=== PATIENT | female | born 1930 | race Caucasian/White ===

== ENCOUNTER 2016-11-07 17:43 | Inpatient (IN) | payer OTHER, MEDICARE ==
--- NOTE | 2016-11-07 18:14 | EDPHY ---
H & P Stated Complaint: VOMITING DIARRHEA FOR 2 DAYS, LOW BP Time Seen by Provider: 11/07/16 18:17 HPI/ROS: CHIEF COMPLAINT: Vomiting, diarrhea HISTORY OF PRESENT ILLNESS: This patient is an 86 year old female with a history of Alzheimer's disease who presents to the Emergency Department following two episodes of vomiting yesterday and diarrhea persisting over an unknown time. It seems that the vomiting and diarrhea occurred yesterday and today, but the details are unclear. Her granddaughter reports that patient was hypotensive at 61/30 when standing with the cuff they were using. She reported dizziness earlier that day as well. Upon arrival, BP is 131/61. The patient states that she is feeling much better and denies vomiting or diarrhea or abdominal pain. She denies chest pain, shortness of breath, or lightheadedness. Medical history incudes transient hypotension. She was evaluated in the emergency department previously with hypotension and has subsequently had her antihypertensive medications adjusted. The patient lives at home with 8 hours of help per day. She is followed by Dr. Harry, glass carrier and Dr. Padgett, PCP. REVIEW OF SYSTEMS: A ten point review of systems was performed and is negative with the exception of the items mentioned in the HPI. History provided by family members, as patient is considered unreliable due to her dementia. Source: Patient, Family Exam Limitations: Other (Dementia) - Personal History Current Tetanus/Diphtheria Vaccine: Unsure - Medical/Surgical History PMH: 1. Hypertension 2. Alzheimer's Disease 3. Transient hypotension with frequent falls Hx Asthma: No Hx Chronic Respiratory Disease: No Hx Diabetes: No Hx Cardiac Disease: No Hx Renal Disease: No Hx Cirrhosis: No Hx Alcoholism: No Hx HIV/AIDS: No Hx Splenectomy or Spleen Trauma: No - Social History Smoking Status: Never smoked Additional Social History: She is retired from [employer]. - Physical Exam Exam: General Appearance: Alert. Vital signs reviewed. Blood pressure 91/53 at triage, 131/60 at the time of my evaluation. Eyes: Pupils equal and round, no conjunctival injection, no discharge. Anicteric. ENT, Mouth: Mucous membranes are moist, no oropharyngeal erythema or edema. Neck: No lymphadenopathy, supple. Respiratory: Lungs are clear to auscultation; no wheezes, rales, or rhonchi. Cardiovascular: Regular rate and rhythm; no murmur, rub, or gallop. Gastrointestinal: Abdomen is soft with mild suprapubic tenderness to palpation , no guarding, no masses or organomegaly, bowel sounds normal. Skin: Warm and dry, no rashes on exposed skin, normal color. Back: Nontender to palpation over the thoracolumbar spine. No CVAT. Extremities: No lower extremity edema, no calf tenderness or swelling. Small skin tear on left reyes. Neurological: Alert and oriented. Moving all four extremities easily and equally. Psychiatric: Normal affect. Constitutional: Initial Vital Signs Temperature (C) 36.5 C 11/07/16 17:47 Heart Rate 56 L 11/07/16 17:47 Blood Pressure 91/53 L 11/07/16 17:47 O2 Sat (%) 98 11/07/16 17:47 O2 Delivery Mode Room Air Allergies/Adverse Reactions: No Known Allergies Allergy (Verified 11/07/16 17:53) Home Medications: Medication Instructions Recorded Donepezil HCl 10 mg PO HS 10/09/15 Aspirin [Aspirin 81mg (*)] 81 mg PO DAILY #30 tab 10/11/15 Metoprolol Succinate Xr [Toprol Xl 50 mg PO DAILY #30 tab 10/11/15 50 mg (*)] Escitalopram Oxalate [Lexapro] 10 mg PO DAILY 11/07/16 Herbals/Supplements -Info Only 1 ea PO DAILY 11/07/16 Lisinopril [Zestril 20 mg (*)] 20 mg PO DAILY 11/07/16 Medical Decision Making ED Course/Re-evaluation: IV established. 500ml IV NS administered. Will proceed with labs and UA. Labs reviewed and indicate acute kidney injury. I suspect that this is due to recent vomiting and diarrhea but the details of this presumed gastroenteritis are somewhat unclear. She has a baseline creatinine from 1.2-2.1, with today's values being markedly worse-labs show a BUN of 59 and a creatinine of 4.8 today. Potassium is normal. I discussed these results with the patient and her family as well as the plan for admission. 194: Consultation with Dr. Anu Robison, hospitalist, who accepts admission. Will check urine osmolality and sodium. She is being hydrated in the emergency department. Differential Diagnosis: I considered a differential diagnosis of elevated creatinine including but not limited to renal failure, pre renal, ATN, medication side effect, cardiorenal or hepato renal syndrome. - Data Points Laboratory Results: Laboratory Results 11/07/16 18:30 11/07/16 18:30 Medications Given: Discontinued Medications Sodium Chloride (Ns) 500 mls @ 0 mls/hr IV ONCE ONE PRN Reason: Wide Open Stop: 11/07/16 18:36 Last Admin: 11/07/16 18:40 Dose: 500 mls Sodium Chloride (Ns) 500 mls @ 1,500 mls/hr IV ONCE ONE Stop: 11/07/16 20:03 Last Admin: 11/07/16 19:45 Dose: 500 mls Departure - Departure Disposition: [facility] Inpatient Acute Clinical Impression: Dehydration Acute renal failure Qualifiers: Qualifier Code: (N17.9) Acute kidney failure, unspecified Condition: Fair Report Scribed for: Melinda Richmond Report Scribed by: Diana Childs Date of Report: 11/07/16 Time of Report: 18:16 Physician Review and Approval Statement: 11/07/16 18:14 Portions of this note were transcribed by the senior medical transcriptionist. I, Dr. Melinda Richmond, personally performed the history, physical exam, and medical decision- making; and confirmed the accuracy of the information in the transcribed note.
[2016-11-07] MEDS ORDERED: NS 500 ML IV ONE ×2 (18:35→19:44)
[2016-11-07 18:40] LABS: % IMMATURE GRANULYOCYTES 0.5 % (0.0-1.1); ABSOLUTE IMMATURE GRANULOCYTES 0.04 10^3/uL (0.00-0.10); ADD DIFF? NO; ADD MORPH? NO; ADD SCAN? NO; ATYPICAL LYMPHOCYTE FLAG 10 (0-99); FRAGMENT RBC FLAG 0 (0-99); HEMATOCRIT 39.6 % (38.0-47.0); HEMOGLOBIN 13.1 g/dL (12.6-16.3); LEFT SHIFT FLG 0 (0-99); LIPEMIA HEMOLYSIS FLAG 80 (0-99); MEAN CELL HEMOGLOBIN 32.3 pg (27.9-34.1); MEAN CELL HEMOGLOBIN CONCENTR. 33.1 g/dL (32.4-36.7); MEAN CELL VOLUME 97.5 fL (81.5-99.8); MEAN PLATELET VOLUME 9.7 fL (8.7-11.7); PLATELET CLUMPS FLAG 10 (0-99); PLATELET COUNT 320 10^3/uL (150-400); RED BLOOD CELL COUNT 4.06 10^6/uL (4.18-5.33); RED CELL DISTRIBUTION WIDTH 14.2 % (11.5-15.2)
[2016-11-07 19:02] LABS: ANION GAP 19 mEq/L (8-16); CALCIUM 8.9 mg/dL (8.5-10.4); CARBON DIOXIDE 16 mEq/l (22-31); CHLORIDE 106 mEq/L (97-110); CREATININE 4.8 mg/dL (0.6-1.0); GLOMERULAR FILTRATION RATE 9; GLUCOSE 103 mg/dL (70-100); POTASSIUM 3.8 mEq/L (3.5-5.2); SODIUM 141 mEq/L (134-144)
[2016-11-08] MEDS ORDERED: ACETAMINOPHEN 325 MG TAB PO PRN (00:09)
[2016-11-08] MEDS ORDERED: HYDROCODONE/APAP 5/325 TAB PO PRN (00:09)
[2016-11-08] MEDS ORDERED: ONDANSETRON DISINTEGRATING 4 MG TAB PO PRN (00:09)
[2016-11-08] MEDS ORDERED: ONDANSETRON 4 MG/2 ML VIAL IVP PRN (00:09)
[2016-11-08] MEDS: NS 1,000 ML IV SCH ×2 (00:39→13:52)
[2016-11-08] MEDS: HEPARIN 5,000 UNIT/0.5 ML SYR SC SCH ×3 (04:48→22:05)
--- NOTE | 2016-11-08 04:49 | PDGENHP ---
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 Per report patient had an episode of vomiting earlier in the day, granddaughter evaluated patient's blood pressure and was noted to be low, so she was brought to the ED for further evaluation. On my evaluation patient denies any complaints, denies any recent fevers, chills, nausea, vomiting, diarrhea, chest pain, dizziness or shortness of breath. Upon arrival to the ED patient was afebrile and hemodynamically stable. Patient 's labs revealed elevated BUN and creatinine, other electrolytes normal, normal CBC. Patient was given gentle IV fluid hydration and admitted to the hospital service for further management. History Information - Allergies/Home Medication List Allergies/Adverse Reactions: No Known Allergies Allergy (Verified 11/07/16 17:53) Home Medications: Donepezil HCl 10 mg PO HS 10/09/15 [Last Taken 11/07/16 10:00] Escitalopram Oxalate [Lexapro] 10 mg PO DAILY 11/07/16 [Last Taken 11/07/16 10: 00] Herbals/Supplements -Info Only 1 ea PO DAILY 11/07/16 [Last Taken Unknown] Lisinopril [Zestril 20 mg (*)] 20 mg PO DAILY 11/07/16 [Last Taken 11/07/16 10: 00] I have personally reviewed and updated: family history, medical history, social history, surgical history - Past Medical History Additional medical history: Alzheimer's dementia. Hypertension. History of CVA - Surgical History Additional surgical history: Hysterectomy - Family History Positive for: non-pertinent - Social History Smoking Status: Never smoked Alcohol Use: None Drug Use: None Additional social history: Patient lives alone with PAN GREASER, but is largely independent in all ADLs. She walks independently. Review of Systems ROS: 10pt was reviewed & negative except for what was stated in HPI & below Physical Exam Temp Pulse Resp BP Pulse Ox 36.5 C 59 L 16 139/55 H 99 11/08/16 04:38 11/08/16 04:38 11/08/16 04:38 11/08/16 04:38 11/08/16 04:38 Constitutional: no apparent distress, appears nourished, not in pain Eyes: PERRL, anicteric sclera, EOMI Ears, Nose, Mouth, Throat: hearing normal, ears appear normal, no oral mucosal ulcers, dry mucous membranes Cardiovascular: regular rate and rhythym, no murmur, rub, or gallop, pulses symmetric bilaterally, No JVD, No edema Peripheral Pulses: 2+: dorsalis-pedis (R), dorsalis-pedis (L) Respiratory: no respiratory distress, no rales or rhonchi, clear to auscultation Gastrointestinal: normoactive bowel sounds, soft, non-tender abdomen, no palpable masses Genitourinary: no bladder fullness, no bladder tenderness Skin: warm, normal color, no rashes or abrasions, no fluctuance, no induration, No mottled Musculoskeletal: full muscle strength, no muscle tenderness, normal joint ROM, no joint effusions Neurologic: sensation intact bilaterally, CN II-XII Intact, other (Conversant, oriented to person and hospital, follows all simple commands appropriately.), No weakness, No numbness, No pronator drift, No facial droop Psychiatric: interacting appropriately (With dementia), not encephalopathic Lab Data & Imaging Review 11/07/16 18:30 11/07/16 18:30 WBC 8.76 10^3/uL (3.80-9.50) 11/07/16 18:30 RBC 4.06 10^6/uL (4.18-5.33) L 11/07/16 18:30 Hgb 13.1 g/dL (12.6-16.3) 11/07/16 18:30 Hct 39.6 % (38.0-47.0) 11/07/16 18:30 MCV 97.5 fL (81.5-99.8) 11/07/16 18:30 MCH 32.3 pg (27.9-34.1) 11/07/16 18:30 MCHC 33.1 g/dL (32.4-36.7) 11/07/16 18:30 RDW 14.2 % (11.5-15.2) 11/07/16 18:30 Plt Count 320 10^3/uL (150-400) 11/07/16 18:30 MPV 9.7 fL (8.7-11.7) 11/07/16 18:30 Neut % (Auto) 51.1 % (39.3-74.2) 11/07/16 18:30 Lymph % (Auto) 36.6 % (15.0-45.0) 11/07/16 18:30 [place]alier % (Auto) 9.7 % (4.5-13.0) 11/07/16 18:30 Eos % (Auto) 1.4 % (0.6-7.6) 11/07/16 18:30 Baso % (Auto) 0.7 % (0.3-1.7) 11/07/16 18:30 Nucleat RBC Rel Count 0.0 % (0.0-0.2) 11/07/16 18:30 Absolute Neuts (auto) 4.48 10^3/uL (1.70-6.50) 11/07/16 18:30 Absolute Lymphs (auto) 3.21 10^3/uL (1.00-3.00) H 11/07/16 18:30 Absolute Monos (auto) 0.85 10^3/uL (0.30-0.80) H 11/07/16 18:30 Absolute Eos (auto) 0.12 10^3/uL (0.03-0.40) 11/07/16 18:30 Absolute Basos (auto) 0.06 10^3/uL (0.02-0.10) 11/07/16 18:30 Absolute Nucleated RBC 0.00 10^3/uL (0-0.01) 11/07/16 18:30 Immature Gran % 0.5 % (0.0-1.1) 11/07/16 18:30 Immature Gran # 0.04 10^3/uL (0.00-0.10) 11/07/16 18:30 Sodium 141 mEq/L (134-144) 11/07/16 18:30 Potassium 3.8 mEq/L (3.5-5.2) 11/07/16 18:30 Chloride 106 mEq/L (97-110) 11/07/16 18:30 Carbon Dioxide 16 mEq/l (22-31) L 11/07/16 18:30 Anion Gap 19 mEq/L (8-16) 01/16/17 18:30 BUN 59 mg/dL (7-23) H 11/07/16 18:30 Creatinine 4.8 mg/dL (0.6-1.0) H 11/07/16 18:30 Estimated GFR 9 11/07/16 18:30 Glucose 103 mg/dL (70-100) H 11/07/16 18:30 Calcium 8.9 mg/dL (8.5-10.4) 11/07/16 18:30 Assessment & Plan Assessment: Patient is an 86-year-old female with a history of Alzheimer's dementia, hypertension who presents to the ED after some episodes of vomiting, ED workup reveals ANAHI on CKD. Plan: # ANAHI on CKD BUN/Cr both elevated above previous baseline (Cr 1.2-2.1), likely prerenal given history of vomiting. Will check urinalysis, urine electrolytes and renal ultrasound. Hold all nephrotoxic agents. # nausea/vomiting Patient denies any nausea, vomiting or diarrhea on my evaluation. Likely a simple viral gastroenteritis. Will treat symptomatically and give IV fluid hydration. No indication for antibiotics at this time. # ?hypotension/lightheadedness Patient has been normotensive since arrival to the hospital. Report of hypotension at home is unclear. Will hold antihypertensives for now and give IV fluid hydration overnight. # Alzheimer's dementia Patient appears to be at baseline mental status. Will continue home med. # dispo: admit to inpt service for > 2 MN stay # gen: regular diet DVT ppx: lovenox Full code
[2016-11-08 05:35] LABS: % IMMATURE GRANULYOCYTES 0.3 % (0.0-1.1); ABSOLUTE IMMATURE GRANULOCYTES 0.03 10^3/uL (0.00-0.10); ADD DIFF? NO; ADD MORPH? NO; ADD SCAN? NO; ATYPICAL LYMPHOCYTE FLAG 10 (0-99); FRAGMENT RBC FLAG 0 (0-99); HEMATOCRIT 35.1 % (38.0-47.0); HEMOGLOBIN 11.4 g/dL (12.6-16.3); LEFT SHIFT FLG 0 (0-99); LIPEMIA HEMOLYSIS FLAG 80 (0-99); MEAN CELL HEMOGLOBIN 32.6 pg (27.9-34.1); MEAN CELL HEMOGLOBIN CONCENTR. 32.5 g/dL (32.4-36.7); MEAN CELL VOLUME 100.3 fL (81.5-99.8); MEAN PLATELET VOLUME 10.1 fL (8.7-11.7); PLATELET CLUMPS FLAG 0 (0-99); PLATELET COUNT 259 10^3/uL (150-400); RED CELL DISTRIBUTION WIDTH 14.3 % (11.5-15.2)
[2016-11-08 05:53] LABS: ANION GAP 14 mEq/L (8-16); CALCIUM 8.3 mg/dL (8.5-10.4); CARBON DIOXIDE 16 mEq/l (22-31); CHLORIDE 114 mEq/L (97-110); CREATININE 3.7 mg/dL (0.6-1.0); GLOMERULAR FILTRATION RATE 12; GLUCOSE 77 mg/dL (70-100); MAGNESIUM 2.1 mg/dL (1.6-2.3); POTASSIUM 3.9 mEq/L (3.5-5.2); SODIUM 144 mEq/L (134-144)
--- NOTE | 2016-11-08 10:25 | US ---
Ultrasound Abdomen Retroperitoneal. Indication Acute on chronic renal failure. TECHNIQUE: Grayscale and color imaging of the kidneys and bladder. FINDINGS: The right kidney measures 3.0 x 3.5 x 8.3 cm with a 1.1 cm cortex. Left kidney measures 4.6 x 4.8 x 8.7 cm with a 1.1 cm cortex. The kidneys are normal in morphology an d echotexture. Prevoid bladder volume is 40 mL. Patient was unable to void. Impression Mildly atrophic kidneys bilaterally.
[2016-11-08 11:13] LABS: COLOR YELLOW; LEUKOCYTE ESTERASE,URINE 1+ (NEGATIVE); NITRITE,URINE NEGATIVE (NEGATIVE)
[2016-11-08 11:18] LABS: BACTERIA TRACE /hpf (NONE SEEN); MUCUS TRACE /lpf (NONE-1+)
--- NOTE | 2016-11-08 13:45 | HOSPPROG ---
Hospitalist Progress Note Assessment/Plan: Patient is an 86-year-old female with a history of Alzheimer's dementia, hypertension who presents to the ED after some episodes of vomiting, ED workup reveals ANAHI on CKD. This is my first encounter. Chart reviewed. Plan: # ANAHI on CKD BUN/Cr both elevated above previous baseline (Cr 1.2-2.1), likely prerenal given history of vomiting. Urinalysis, urine electrolytes and renal ultrasound normal. Hold all nephrotoxic agents. Likely related to poor PO intake and vomiting. # nausea/vomiting Patient denies any nausea, vomiting or diarrhea on my evaluation. Likely a simple viral gastroenteritis. Will treat symptomatically and give IV fluid hydration. No indication for antibiotics at this time. # ?hypotension/lightheadedness Patient has been normotensive since arrival to the hospital. Report of hypotension at home is unclear. Will hold antihypertensives for now and give IV fluid hydration overnight. # Alzheimer's dementia Patient appears to be at baseline mental status. Will continue home med. # dispo: admit to inpt service for > 2 [place] stay possible DC in 1-2 days. Follow labs. # gen: regular diet DVT ppx: lovenox Full code Subjective: Up in the chair. Wants to go home. Feels better. Objective: Vital Signs Temp Pulse Resp BP Pulse Ox 36.6 C 54 L 16 158/70 H 95 11/08/16 07:22 11/08/16 07:22 11/08/16 04:38 11/08/16 07:22 11/08/16 07:22 Laboratory Results 11/08/16 04:44 11/08/16 04:44 11/07/16 11/08/16 11/09/16 05:59 05:59 05:59 Intake Total 1291 Output Total 300 100 Balance 991 -100 - Physical Exam Constitutional: no apparent distress, appears nourished, not in pain Eyes: PERRL, anicteric sclera, EOMI Ears, Nose, Mouth, Throat: moist mucous membranes, hearing normal, ears appear normal Cardiovascular: regular rate and rhythym, No JVD, No edema Respiratory: no respiratory distress, no rales or rhonchi, reduced air movement Gastrointestinal: No tenderness, No ascites, No guarding Skin: warm, normal color, No erythema Musculoskeletal: normal joint ROM, no joint effusions, generalized weakness Psychiatric: interacting appropriately, not anxious, poor insight, poor judgement, poor memory ICD10 Worksheet Patient Problems: Problems Problem Status Diagnosed Acute renal failure Acute Dehydration Acute Elevated troponin Acute Hypertension Acute
[2016-11-08] MEDS: ESCITALOPRAM OXALATE 10 MG TAB PO SCH (13:51)
[2016-11-08] MEDS: METOPROLOL SUCCINATE XR 50 MG TAB PO SCH (13:51)
[2016-11-08] MEDS ORDERED: NON-FORMULARY NEW DRUG (Donepezil Hcl [Donepezil Hcl] 10 MG) PO SCH (21:00)
[2016-11-08] MEDS ORDERED: DONEPEZIL HCL 5 MG TAB PO SCH (21:00)
[2016-11-08 23:23] VITALS: RESP 16
[2016-11-09] MEDS: NS 1,000 ML IV SCH (04:34)
[2016-11-09] MEDS: HEPARIN 5,000 UNIT/0.5 ML SYR SC SCH (04:57)
[2016-11-09 06:08] LABS: ANION GAP 12 mEq/L (8-16); CALCIUM 8.1 mg/dL (8.5-10.4); CARBON DIOXIDE 13 mEq/l (22-31); CHLORIDE 119 mEq/L (97-110); CREATININE 1.7 mg/dL (0.6-1.0); GLOMERULAR FILTRATION RATE 28; GLUCOSE 82 mg/dL (70-100); POTASSIUM 3.9 mEq/L (3.5-5.2); SODIUM 144 mEq/L (134-144)
[2016-11-09] MEDS: ESCITALOPRAM OXALATE 10 MG TAB PO SCH (08:36)
[2016-11-09] MEDS: METOPROLOL SUCCINATE XR 50 MG TAB PO SCH (08:36)
[2016-11-09 08:56] VITALS: BP 144/71; PULSE 50; TEMP 98.7; O2SAT 98
[2016-11-09] MEDS ORDERED: LISINOPRIL 20 MG TAB PO SCH (09:00)
[2016-11-09] MEDS ORDERED: Herbals/Supplements -Info Only PO SCH (09:00)
[2016-11-09] MEDS ORDERED: ASPIRIN 81 MG CHEWABLE TAB PO SCH (09:00)
--- NOTE | 2016-11-09 11:52 | GDS ---
[f rep st] DISCHARGE SUMMARY DISCHARGE DIAGNOSES: 1. Acute kidney injury. 2. Nausea and vomiting. 3. Hypotension. 4. Alzheimer disease. 5. Dehydration. PHYSICAL EXAM: GENERAL: The patient is alert. VITAL SIGNS: Afebrile at 37.1, pulse is 50, respira tory rate 16, blood pressure is 144/71. She is saturating 98% on room air. I have seen and evaluate d the patient on the day of discharge. HOSPITAL COURSE: The patient is an 86-year-old female who presented to the emergency room with compl aints of vomiting. 1. She was evaluated and diagnosed with acute kidney injury. During this hospitalization, she respo nded well to IV fluids. A renal ultrasound was performed that was benign. Her acute kidney injury h as resolved. She has returned to her baseline creatinine of 1.7 prior to disposition. This is likel y prerenal azotemia. 2. Nausea and vomiting. This has resolved and likely viral gastroenteritis. 3. Hypotension. The patient has been normotensive during this hospitalization with no complications . 4. Alzheimer's dementia. She is at her baseline. DISPOSITION: The patient will be discharged home with her family independently. There are no pendin g studies. Followup will be with her primary care physician, Moon Padgett, in the next week, for fu rther evaluation of her renal function. DISCHARGE MEDICATIONS: Please refer to EMR form. I have not adjusted the patient's previously presc ribed home medications to the best of my knowledge. I spent greater than 35 minutes in the care, coordination, and management of this patient's dispositi on, including family interaction, case management interaction and [id number] interaction. /[id number]/MODL
== END 2016-11-09 10:29 | disposition home or self-care (01) | DRG 684 ==
LOC: EEVIPCON 17:43 → F3E 20:48
PROVIDERS: ADMIT Hospitalist; ATTEND Hospitalist
DX: N17.9 Acute kidney failure, unspecified (principal); A08.4 Viral intestinal infection, unspecified; F02.80 Dementia in other diseases classified elsewhere, unspecified severity, without behavioral disturbance, psychotic disturbance, mood disturbance, and anxiety; G30.9 Alzheimer's disease, unspecified; I10 Essential (primary) hypertension; Z86.73 Personal history of transient ischemic attack (TIA), and cerebral infarction without residual deficits
CPT/HCPCS: 97162-GP; 97165-GO; G8978-GP-CI; G8979-GP-CI; G8987-GO-CI; G8988-GO-CI; G8989-GO-CI

== ENCOUNTER 2016-12-29 16:17 | Observation (INO) | payer OTHER, MEDICARE ==
--- NOTE | 2016-12-29 17:04 | EDPHY ---
H & P Time Seen by Provider: 12/29/16 17:03 HPI/ROS: CHIEF COMPLAINT: Near syncope and low blood pressure HISTORY OF PRESENT ILLNESS: This 86-year-old woman arrives with her daughter. They have been having trouble getting her blood pressure in an adequate range and continued to try different medications. She just recently started hydrochlorothiazide. Today at 2:30 p.m. the caregiver went to her house and found her leaning against the wall shaky when the door was finally opened. She was lightheaded and almost passed out and was down on the couch. Her granddaughter came over and her blood pressure and was 84/60 lying down and 61/ 50 standing up. Patient had leg cramps them but does not have any now. REVIEW OF SYSTEMS: Eye: no change in vision ENT: no sore throat Cardiac: no chest pain or syncope Pulmonary: no cough or SOB Abdomen: no vomiting, diarrhea, abdominal pain Musculoskeletal: no back pain Skin: no rash Neuro: no headache Constitutional: no fever : no urinary symptoms A comprehensive 10 point review of systems is otherwise negative aside from elements mentioned in the history of present illness. PAST MEDICAL HISTORY: Includes stroke and Alzheimer's, hypertension. Social history: Here with her daughter who was at nurse. Primary care is Moon Padgett. General Appearance: Alert and conversant, cooperative. Eyes: No scleral icterus. ENT, Mouth: Normal mucous membranes. Respiratory: Normal respiratory effort, breath sounds equal, lungs are clear to auscultation. Cardiovascular: Regular rate and rhythm. Gastrointestinal: Abdomen is soft and non tender. Neurological: Alert and follows commands but poor short-term memory. Normally conversant. Face symmetric, normal movement and sensation in all extremities. Skin: Warm and dry, no rashes. Musculoskeletal: No peripheral edema and no joint swelling. Psychiatric: Not agitated. Emergency Department course/MDM: Normal saline 500 mL IV, labs to check electrolytes and EKG. Griselda at 1802. Admit for orthostatic hypotension and significant dehydration with evidence of acute renal failure and creatinine 2.4 which is markedly above baseline. Smoking Status: Never smoked Constitutional: Initial Vital Signs Temperature (C) 36.4 C 12/29/16 16:28 Heart Rate 63 12/29/16 16:28 Respiratory Rate 16 12/29/16 16:28 Blood Pressure 108/55 L 12/29/16 16:28 O2 Sat (%) 97 12/29/16 16:28 O2 Delivery Mode Room Air Allergies/Adverse Reactions: No Known Allergies Allergy (Verified 11/07/16 17:53) Home Medications: Medication Instructions Recorded Donepezil HCl 10 mg PO HS 10/09/15 Aspirin [Aspirin 81mg (*)] 81 mg PO DAILY #30 tab 10/11/15 Metoprolol Succinate Xr [Toprol Xl 50 mg PO DAILY #30 tab 10/11/15 50 mg (*)] Escitalopram Oxalate [Lexapro 10 10 mg PO DAILY 11/07/16 MG] Lisinopril [Zestril 20 mg (*)] 20 mg PO DAILY 11/07/16 Acetaminophen [Tylenol 325mg (*)] 650 mg PO Q4HRS PRN #0 tab 11/09/16 Medical Decision Making - Diagnostics EKG Interpretation: 12-lead EKG interpreted by me; official reading is in trace master. My interpretation is sinus rhythm rate 60 with PAC and 1st degree AV block. Incomplete left bundle branch block with LVH. - Data Points Laboratory Results: Laboratory Results 12/29/16 17:13 12/29/16 17:13 12/29/16 12/29/16 17:13 17:13 WBC 8.48 10^3/uL 10^3/uL (3.80-9.50) RBC 4.17 10^6/uL L 10^6/uL (4.18-5.33) Hgb 13.3 g/dL g/dL (12.6-16.3) Hct 41.2 % % (38.0-47.0) MCV 98.8 fL fL (81.5-99.8) MCH 31.9 pg pg (27.9-34.1) MCHC 32.3 g/dL L g/dL (32.4-36.7) RDW 13.5 % % (11.5-15.2) Plt Count 278 10^3/uL 10^3/uL (150-400) MPV 10.5 fL fL (8.7-11.7) Neut % (Auto) 59.2 % % (39.3-74.2) Lymph % (Auto) 30.1 % % (15.0-45.0) [place] % (Auto) 8.5 % % (4.5-13.0) Eos % (Auto) 1.1 % % (0.6-7.6) Baso % (Auto) 0.7 % % (0.3-1.7) Nucleat RBC Rel Count 0.0 % % (0.0-0.2) Absolute Neuts (auto) 5.03 10^3/uL 10^3/uL (1.70-6.50) Absolute Lymphs (auto) 2.55 10^3/uL 10^3/uL (1.00-3.00) Absolute Monos (auto) 0.72 10^3/uL 10^3/uL (0.30-0.80) Absolute Eos (auto) 0.09 10^3/uL 10^3/uL (0.03-0.40) Absolute Basos (auto) 0.06 10^3/uL 10^3/uL (0.02-0.10) Absolute Nucleated RBC 0.00 10^3/uL 10^3/uL (0-0.01) Immature Gran % 0.4 % % (0.0-1.1) Immature Gran # 0.03 10^3/uL 10^3/uL (0.00-0.10) Sodium 134 mEq/L mEq/L (134-144) Potassium 5.0 mEq/L mEq/L (3.5-5.2) Chloride 100 mEq/L mEq/L (97-110) Carbon Dioxide 20 mEq/l L mEq/l (22-31) Anion Gap 14 mEq/L mEq/L (8-16) BUN 58 mg/dL H mg/dL (7-23) Creatinine 2.4 mg/dL H mg/dL (0.6-1.0) Estimated GFR 19 Glucose 88 mg/dL mg/dL (70-100) Calcium 9.5 mg/dL mg/dL (8.5-10.4) Troponin I 0.027 ng/mL ng/mL (0-0.034) NT-Pro-B Natriuret Pep 512 pg/mL H pg/mL (0-450) Medications Given: Discontinued Medications Sodium Chloride (Ns) 500 mls @ 0 mls/hr IV ONCE ONE PRN Reason: As Directed Stop: 12/29/16 17:18 Last Admin: 12/29/16 17:50 Dose: 500 mls Departure - Departure Disposition: [facility] Inpatient Acute Clinical Impression: Orthostatic hypotension Acute renal failure Qualifiers: Acute renal failure type: unspecified Qualified Code(s): N17.9 - Acute kidney failure, unspecified Referrals: Moon Padgett MD [Primary Care Provider] - As per Instructions
[2016-12-29] MEDS ORDERED: NS 500 ML IV ONE (17:17)
--- NOTE | 2016-12-29 17:23 | CPEKG ---
Heart Rate: 60 RR Interval: 1000 P-R Interval: 232 QRSD Interval: 114 QT Interval: 452 QTC Interval: 452 P [place]: 33 QRS [place]: -37 T Wave [place]: 140 EKG Severity - ABNORMAL ECG - EKG Impression: SINUS RHYTHM EKG Impression: ATRIAL PREMATURE COMPLEX EKG Impression: FIRST DEGREE AV BLOCK EKG Impression: INCOMPLETE LEFT BUNDLE BRANCH BLOCK EKG Impression: LVH WITH SECONDARY REPOLARIZATION ABNORMALITY Electronically Signed By: Rene Kwon 29-Dec-2016 17:25:30
[2016-12-29 17:25] LABS: % IMMATURE GRANULYOCYTES 0.4 % (0.0-1.1); ABSOLUTE IMMATURE GRANULOCYTES 0.03 10^3/uL (0.00-0.10); ADD DIFF? NO; ADD MORPH? NO; ADD SCAN? NO; ATYPICAL LYMPHOCYTE FLAG 30 (0-99); FRAGMENT RBC FLAG 0 (0-99); HEMATOCRIT 41.2 % (38.0-47.0); HEMOGLOBIN 13.3 g/dL (12.6-16.3); LEFT SHIFT FLG 0 (0-99); LIPEMIA HEMOLYSIS FLAG 80 (0-99); MEAN CELL HEMOGLOBIN 31.9 pg (27.9-34.1); MEAN CELL HEMOGLOBIN CONCENTR. 32.3 g/dL (32.4-36.7); MEAN CELL VOLUME 98.8 fL (81.5-99.8); MEAN PLATELET VOLUME 10.5 fL (8.7-11.7); PLATELET CLUMPS FLAG 10 (0-99); PLATELET COUNT 278 10^3/uL (150-400); RED BLOOD CELL COUNT 4.17 10^6/uL (4.18-5.33); RED CELL DISTRIBUTION WIDTH 13.5 % (11.5-15.2)
[2016-12-29 17:36] LABS: ANION GAP 14 mEq/L (8-16); CALCIUM 9.5 mg/dL (8.5-10.4); CARBON DIOXIDE 20 mEq/l (22-31); CHLORIDE 100 mEq/L (97-110); CREATININE 2.4 mg/dL (0.6-1.0); GLOMERULAR FILTRATION RATE 19; GLUCOSE 88 mg/dL (70-100); SODIUM 134 mEq/L (134-144)
[2016-12-29 17:48] LABS: TROPONIN I 0.027 ng/mL (0-0.034)
[2016-12-29] MEDS ORDERED: ONDANSETRON DISINTEGRATING 4 MG TAB PO PRN (19:16)
[2016-12-29] MEDS ORDERED: ACETAMINOPHEN 325 MG TAB PO PRN (19:16)
[2016-12-29] MEDS ORDERED: ONDANSETRON 4 MG/2 ML VIAL IVP PRN (19:16)
[2016-12-29] MEDS ORDERED: hydrALAZINE 20 MG/ML VIAL IVP PRN (19:23)
--- NOTE | 2016-12-29 19:44 | GHP ---
[f rep st] HISTORY AND PHYSICAL DATE OF ADMISSION: 12/29/2016 CHIEF COMPLAINT: Near syncope and low blood pressure. HISTORY OF PRESENT ILLNESS: This is an 86-year-old female, who arrives in the emergency department with her daughter. Recent history indicates she has been having trouble controlling her blood press ure for the past 4 to 6 weeks. In October 2016 the patient was cared for in this facility for an ac gabby episode of nausea, vomiting, hypotension and dehydration. She exhibited some acute renal injury at that time. She was noted to be hypotensive during the hospitalization and then normotensive at discharge, and was discharged without her usual antihypertensives. Following that discharge, on , her blood pressure remained normal for approximately 2 weeks. Then it began to rise and be came quite high. Previous to that admission her blood pressure had easily been controlled on metopr olol 50 mg a day, along with lisinopril 10 mg a day. Now following the hospitalization her blood pr essure began to rise and became quite high with systolics in the 200s and a complaint of a headache. She was then restarted on her metoprolol along with her lisinopril. During physician's visit she was noted to have developed peripheral edema, to have some facial edema, and to have a pulse rate in the 30s. The metoprolol was stopped at that time. The lisinopril was increased to 20 mg a day wit hout much control of her blood pressure. In addition, the peripheral edema did not resolve very wel l, thus approximately 1-1/2 to 2 weeks ago her lisinopril remained at 20 mg a day, and she was place d on hydrochlorothiazide 12.5 mg a day. The peripheral edema began to resolve, yet today she was no milind by her caregiver to be weak and tired, and have a blood pressure in the 60s to 80s systolic. Trish nuñez was thus transported to this facility, and is seen now where her initial blood pressure was 108/55 , and her mental status was normal. She has a known long history of hypertension and approximately a 10 year history of Alzheimer's, bot h of which have been treated and in good control up until October of 2016. PAST MEDICAL HISTORY: 1. Alzheimer's for the last 10 years. 2. Acute kidney injury, which has been noted since 12/12/2015. Prior to that she normal renal func tion, but since 2016 she has had an elevated creatinine and BUN. 3. History of a cerebrovascular accident noted in the EMR, without further documentation. 4. Bradycardiac in the presence of metoprolol 50 mg a day, in November 2016. ALLERGIES: None. CURRENT MEDICATIONS: Metoprolol succinate 50 mg a day, lisinopril 20 mg a day, Lexapro 10 mg, benaz epril 10 mg, ASA 81 mg, and Tylenol 325 mg. Note that she is not taking the metoprolol 50 mg a day, and hydrochlorothiazide was just recently stopped at 12.5 mg a day. REVIEW OF SYSTEMS: Except as noted above, a 10-point review of systems is negative. Specifically, the patient has not had a fall, she did not strike her head, nor has she suffered a seizure or any f orm of head trauma. In addition she has no complaints of chest pain, orthopnea, PND, abdominal pain , nausea or vomiting. Her bowel function has returned to normal. FAMILY HISTORY: Noncontributory. There is no significant history of coronary disease or cancer. PHYSICAL EXAMINATION: GENERAL: This is a pleasant, alert female. VITAL SIGNS: Vital signs are en tirely normal, and she is afebrile. HEENT: Atraumatic. Throat is benign, although her mucous memb ranes are slightly dry. Tongue and buccal mucosa appear normal, without lesions. CHEST WALL: Nont mary to palpation, normal inspiratory excursion. LUNGS: Clear to P and A. HEART: Singular S1 an d S2, no murmurs, gallops, or rubs. ABDOMEN: Thin, normoactive bowel sounds. No masses, tendernes s or organomegaly. EXTREMITIES: No edema, cyanosis or clubbing. NEUROLOGIC: An oriented x1 femal e. She is alert, responsive and appropriate. Cranial nerves 2-12 are intact grossly, motor sensory function grossly intact. LABORATORY: Her chemistry panel shows acute on chronic renal failure with a BUN of 50, a creatinine of 2.4. Her last normal creatinine was in November 2015 with a creatinine of 0.9. Since that time her creatinine has ranged from 1.2 to now as high as 2.4, although the last creatinine done on 12/2016 was 1.7. CBC is normal. ASSESSMENT: 1. Acute hypotension secondary to dehydration, due to the use of hydrochlorothiazide as a diuretic for control of blood pressure. Historically she started HCTZ approximately 10 to 14 days ago and no w has resolved her peripheral edema, but has clearly been excessively diuresed. Her creatinine is e levated, indicative of this. 2. Hypertension, at a baseline which has been difficult to control for the last 4 to 6 weeks since her hospitalization of 11/11/2016. 3. Episode of bradycardia documented in Dr. Padgett's office with a heart rate in the 30s, while ta ronn metoprolol 50 mg a day. The metoprolol was stopped at that time. 4. A history of frequent falls and weakness. Thus, the patient will be placed on fall precautions. 5. Alzheimer's dementia for the last 10 years, which is currently under treatment and stable. The patient lives alone in her own home but has caregivers come in 2 to 3 hours a day. They prepare her meals and she functions well on her own. She spends the evenings alone. She has wandered at times but never been lost such that she cannot be found easily. 6. Acute kidney injury, on chronic kidney disease. It is difficult to know what her baseline creat inine is. For the last year her creatinine has been elevated, yet she has been on antihypertensive medication including lisinopril. Thus some of her chronic kidney disease may be secondary to the us e of an DANIELLE inhibitor. PLAN: 1. At this time the patient will be not given any antihypertensive unless her blood pressure rises above 160 and we will treat that acutely. She has a history of bradycardia while taking metoprolol, and due to her acute kidney injury an DANIELLE inhibitor is contraindicated. Thus I will use hydralazin e IV, or small doses of labetalol. She will be placed on a dentures lab technician in light of the history of the bradycardia. She will also be given fall precautions. 2. It seems that we need the records from Dr. Padgett's office as to medication timing. In [facility], the patient had an echocardiogram done 6 days ago at the [facility], thus contacting Dr. Perdue tomorrow would be helpful to obtain her results of her echocardiogram. BILLING: The patient will be admitted to observation status. It is possible we could resolve this matter if we obtain the records and the echocardiogram. A renal consultation for management of her hypertension may also be helpful, in light of the fact that we have kidney failure and a history of bradycardia on metoprolol. CODE STATUS: DNR, per verbal comment of the daughter, Juainto Menezes. Juanito is also the medical power of grocery stock clerk. DVT prophylaxis will be with ambulation. TIME: This admission required 65 minutes. /[id number]/MODL
[2016-12-29] MEDS: NS 1,000 ML IV SCH (20:35)
[2016-12-30 02:30] LABS: COLOR PALE YELLOW; LEUKOCYTE ESTERASE,URINE 1+ (NEGATIVE); NITRITE,URINE NEGATIVE (NEGATIVE)
[2016-12-30 02:36] LABS: BACTERIA 1+ /hpf (NONE SEEN)
[2016-12-30 05:27] LABS: ANION GAP 11 mEq/L (8-16); CALCIUM 8.6 mg/dL (8.5-10.4); CARBON DIOXIDE 17 mEq/l (22-31); CHLORIDE 109 mEq/L (97-110); CREATININE 1.7 mg/dL (0.6-1.0); GLOMERULAR FILTRATION RATE 28; GLUCOSE 82 mg/dL (70-100); POTASSIUM 4.7 mEq/L (3.5-5.2); SODIUM 137 mEq/L (134-144)
[2016-12-30] MEDS: NS 1,000 ML IV SCH (06:09)
[2016-12-30 08:35] VITALS: PULSE 60; RESP 21; TEMP 97.4; O2SAT 96
[2016-12-30] MEDS ORDERED: DONEPEZIL HCL 5 MG TAB PO SCH (09:00)
[2016-12-30] MEDS ORDERED: ESCITALOPRAM OXALATE 10 MG TAB PO SCH (09:00)
[2016-12-30] MEDS ORDERED: ASPIRIN 81 MG CHEWABLE TAB PO SCH (09:00)
[2016-12-30 12:47] VITALS: BP 173/74
--- NOTE | 2016-12-30 14:16 | PDCARPN ---
Cardiology Progress Note Chief Complaint: WEAK--Hypertension. Assessment/Plan: Assessment: HYPERTENSION--- In reviewing records and speaking with patient and Grand- daughter, Her BP has been very labile recently. She was noted to have orthostatic hypotension yesterday when her Grand-daughter who is a nurse checked her BP. She had been hospitalized here at [facility] in October 2016, and her BP medications were adjusted. She developed swelling and BP changes and saw her PCP. She had gone home on Lisinopril, Metoprolol, and HCTZ from [facility]. The Metoprolol was stopped and Lisinopril increased and she remained on HCTZ. On this admission Her Creatinine was elevated to 2.4, BNP 512, BUN was 58. HCTZ was stopped, as was her Lisinopril. She is now on Norvasc, only. Her HR is bradycardia at a rate of 56. She has become very sensitive to medications. PVC's: A 4 beat run of VT was noted on telemetry this morning. A rare PVC has been noted. No other arrhythmias noted. She Had a 24 hour Holter Monitor in March 2016 that showed Average HR 55 bpm, Rare PAC, one 4 beat run on SVT at rate of 148, 24 PVC's. She [place] [facility] [place] by her PCP. Results are pending. Karmen wants desperately to go back home. Plan:At this point would recommend continuing on Norvasc 2.5 mg QD, and add Lisinopril 10 mg Daily. With her Renal insufficiency would avoid HCTZ, and with bradycardia would avoid Metoprolol. Recommend Consideration for Palliative Care Consult. Will sign-off at this time. 12/30/16 14:17 Subjective: I just want to go home. Objective: Vital Signs (8 Hrs) Temp Pulse Pulse Pulse Pulse Resp BP 12/30/16 08:40 12/30/16 08:29 36.3 C 60 21 H 187/75 H 12/30/16 06:29 57 L 62 59 L BP BP BP Pulse Ox 12/30/16 08:40 181/79 H 169/75 H 173/74 H 12/30/16 08:29 96 12/30/16 06:29 158/68 H 173/71 H 157/67 H Intake/Output (24 Hrs) 12/29/16 12/30/16 12/31/16 05:59 05:59 05:59 Intake Total 1750 Output Total 1100 Balance 650 Intake: Oral (ml) 300 IV Infused (ml) 1450 Ns 1,000 ml @ 100 mls/hr 950 IV CONT CARLI Rx#: [id number] Output: Urine (ml) 900 Toilet 900 Urine/Stool Mix (ml) 200 Toilet 200 Other: Weight 50.3 kg 50.3 kg Intake Quantity Yes Sufficient Number of Voids 1 Toilet 1 Number of Stools Toilet 1 Result Diagrams: 12/29/16 17:13 12/30/16 03:53 - Physical Exam Constitutional: no apparent distress Eyes: PERRL Cardiovascular: regular rate and rhythm, no rubs, no gallops, No systolic murmur (mild II/) Peripheral Pulses: 1+: dorsalis-pedis (R), dorsalis-pedis (L) Respiratory: clear to auscultate bilat, no crackles, no wheezes Gastrointestinal: no tenderness Skin: warm, no edema Neurologic: other (confused) Psychiatric: cooperative, interactive ICD10 Worksheet Patient Problems: Problems Problem Status Onset Acute renal failure Acute Orthostatic hypotension Acute Dehydration Acute Elevated troponin Acute Hypertension Acute
--- NOTE | 2016-12-30 15:32 | GDS ---
[f rep st] DISCHARGE SUMMARY DIAGNOSES: 1. Presyncope. 2. Hypertension. 3. Recent bradycardia, on metoprolol. 4. Dementia. 5. Chronic kidney disease. HOSPITAL COURSE: This is an 86-year-old female, who is admitted with presyncope and hypotension. S he has had significant issues with her blood pressure recently, and been changing up her antihyperte nsives. She was initially on metoprolol 50 mg a day, which was stopped due to bradycardia with hear t rates in the 30s. Around that time, she had some increased lower extremity edema, was started on hydrochlorothiazide. She also had her lisinopril increased. She presented with hypotension and presyncope, likely due to dehydration in the setting of hypotensi on and acute kidney injury. These resolved with holding these medicines and a small amount of fluid . Her blood pressure has crept back up significantly, has been around 180/90. I discussed this with Dr. Britta Colindres of Cardiology. We will plan to start Norvasc at 2.5 mg p.o. daily. She has a followup in [address] Padgett, her primary care physician. At this poi nt, would certainly hold beta-blockers, DANIELLE inhibitors, given her kidney disease, diuretics, given h er dehydration. I received a verbal report on her echocardiogram from Dr. Hook. He told me that marilyn nuñez had a preserved EF with mild aortic stenosis. I discussed this with her granddaughter. We discussed potential palliative care given her age and c omorbidities. She will follow up with her primary care physician regarding this. /[id number]/MODL
== END 2016-12-30 15:43 | disposition home or self-care (01) ==
LOC: INTOOBSV 18:01 → EEVIPCON 18:01 → OBSVTOIN 18:01 → F1N 20:23 → F2W 21:54
PROVIDERS: ADMIT Internal Medicine Pulmonary Disease; ATTEND Student in an Organized Health Care Education/Training Program
DX: I95.1 Orthostatic hypotension (principal); E86.0 Dehydration; T50.2X5A Adverse effect of carbonic-anhydrase inhibitors, benzothiadiazides and other diuretics, initial encounter; N18.9 Chronic kidney disease, unspecified; G30.9 Alzheimer's disease, unspecified; F02.80 Dementia in other diseases classified elsewhere, unspecified severity, without behavioral disturbance, psychotic disturbance, mood disturbance, and anxiety; I12.9 Hypertensive chronic kidney disease with stage 1 through stage 4 chronic kidney disease, or unspecified chronic kidney disease; R00.1 Bradycardia, unspecified; Z86.73 Personal history of transient ischemic attack (TIA), and cerebral infarction without residual deficits
CPT/HCPCS: 93005; 97165; G0378; G8987; G8988; G8989

== ENCOUNTER → 2017-05-22 | Outpatient (CLI) | payer OTHER, MEDICARE | LOC: BMCIMAGING 10:21 | PROVIDERS: ATTEND Emergency Medicine | DX: S69.91XA Unspecified injury of right wrist, hand and finger(s), initial encounter (principal); M19.041 Primary osteoarthritis, right hand; M85.841 Other specified disorders of bone density and structure, right hand ==

== ENCOUNTER → 2018-01-01 | Outpatient (CLI) | payer OTHER, MEDICARE | LOC: BMCIMAGING 15:24 | PROVIDERS: ATTEND Internal Medicine | DX: S62.342A Nondisplaced fracture of base of third metacarpal bone, right hand, initial encounter for closed fracture (principal); M19.041 Primary osteoarthritis, right hand ==

== ENCOUNTER 2018-01-10 23:05 | Emergency (ER) | payer OTHER, MEDICARE ==
[2018-01-10] MEDS ORDERED: NS 500 ML IV ONE (23:10)
--- NOTE | 2018-01-10 23:11 | EDPHY ---
H & P Time Seen by Provider: 01/10/18 23:25 HPI/ROS: HPI CHIEF COMPLAINT: Shortness of breath HISTORY OF PRESENT ILLNESS: This patient very pleasant 87-year-old female, she presents emergency room shortness of breath from [facility]. She has advanced dementia and upon arrival she denies any complaints she denies chest pain or shortness of breath however reported to staff at her living facility she had shortness of breath. She does arrive with 94% room air saturation is 99% on 2 L. She does have increased tachypnea in the high 20s to low 30s. I do not appreciate any wheezing. She is more diminished on the right than left. Past Medical History: Advanced dementia, hypertension Past Surgical History: Denies recent surgery Social History: Resides at [facility]. Family History: Noncontributory ROS REVIEW OF SYSTEMS: A comprehensive 10 point review of systems is otherwise negative aside from elements mentioned in the history of present illness. Exam Constitutional elderly, frail, appears nontoxic triage nursing summary reviewed , vital signs reviewed, awake/alert. Eyes normal conjunctivae and sclera, EOMI, PERRLA. HENT normal inspection, atraumatic, moist mucus membranes, no epistaxis, neck supple/ no meningismus, no raccoon eyes. Respiratory diminished bilaterally, worse on the right than left, Cardiovascular rate normal, regular rhythm, no murmur, no edema, distal pulses normal. Gastrointestinal soft, non-tender, no rebound, no guarding, normal bowel sounds, no distension, no pulsatile mass. Genitourinary no CVA tenderness. Musculoskeletal no midline vertebral tenderness, full range of motion, no calf swelling, no tenderness of extremities, no meningismus, good pulses, neurovascularly intact. Skin pink, warm, & dry, no rash, skin atraumatic. Neurologic awake, alert and oriented x 3, AAOx3, moves all 4 extremities equally, motor intact, sensory intact, CN II-XII intact, normal cerebellar, normal vision, normal speech. Psychiatric normal mood/affect. Heme/Lymph/Immune no lymphadenopathy. Differential Diagnosis: Includes but is not limited to in a particular order pneumonia, pneumothorax, CHF, acute coronary syndrome, pulmonary embolism, anxiety, dehydration, electrolyte abnormality Medical Decision Making: Plan for this patient full teletypesetter monitor, IV establishment blood draw, obtain EKG, troponin, check BNP, DuoNeb breathing treatment, and re-evaluate. Re-evaluation: CT angiogram of the chest has been ordered due to shortness of breath with positive D-dimer. EKG interpretation by me on record in [employer] system. Impression time of EKG 2316, sinus rhythm rate of 62, first-degree AV block [place] interval [address]. [address] elevation no ST depression when I compare this EKG to her old EKG dated 12/29/2016 is very similar morphology. 1243: CT angiogram of the chest shows no evidence of pulmonary embolism or pneumonia. Chronic changes. 0110AM: Patient re-evaluated this time she is resting comfortably she has no complaints she is requesting to be discharged back to her living facility she states she does not want to be here. Her daughter is at bedside. Her daughter would like to take her back to [facility]. Daughter at bedside. States that she appears well and is in no acute distress. The patient here had a workup for shortness of breath however she appears well and denies feeling shortness of breath. She denies having chest pain. She is not quite sure why she came to the emergency room however she does have advanced dementia. 0111: Currently this time she denies any chest pain shortness of breath she is requesting discharge. Her workup for shortness of breath was pretty much unremarkable she did have a positive D-dimer. She did have a CT angiogram of her chest does not show any evidence of pulmonary embolism or airspace consolidation. Her troponin is negative. Her EKG is at baseline and pretty much unchanged from her previous EKG except for a PVC. Given that she is not having any chest pain she does not appear labored or having any respiratory distress and she is requesting be discharged home as well as daughter at bedside is. I will allow her to go back to [facility]. I have discussed return precautions with her she understands return emergency room if she develops chest pain, shortness of breath or worsening symptoms. She understands. Source: Patient - Medical/Surgical History Hx Asthma: No Hx Chronic Respiratory Disease: No Hx Diabetes: No Hx Cardiac Disease: No Hx Renal Disease: No Hx Cirrhosis: No Hx Alcoholism: No Hx HIV/AIDS: No Hx Splenectomy or Spleen Trauma: No Other PMH: memory issues, alzheimers. CHF, high createnine, osteoporosis, Tia,. HTN - Social History Smoking Status: Never smoked Constitutional: Initial Vital Signs Temperature (C) 36.5 C 01/10/18 23:22 Heart Rate 61 01/10/18 23:22 Respiratory Rate 16 01/10/18 23:22 Blood Pressure 181/74 H 01/10/18 23:22 O2 Sat (%) 96 01/10/18 23:22 O2 Delivery Mode Room Air Allergies/Adverse Reactions: No Known Allergies Allergy (Verified 01/10/18 23:21) Home Medications: Medication Instructions Recorded Aspirin [Aspirin 81mg (*)] 81 mg PO DAILY tab.chew 12/30/16 Donepezil HCl [Aricept 5 MG (*)] 10 mg PO DAILY tab 12/30/16 Escitalopram Oxalate [Lexapro 10 10 mg PO DAILY tab 12/30/16 MG] amLODIPine BESYLATE [Norvasc 2.5 2.5 mg PO DAILY #30 tab 12/30/16 mg (*)] Medical Decision Making - Diagnostics Imaging Results: Imaging Impressions Chest X-Ray 01/10/18 23:10 Impression: 1. Clear lungs. No acute cardiopulmonary process. 2. Minimal cardiomegaly. No failure. - Data Points Laboratory Results: Laboratory Results 01/10/18 23:10 01/10/18 23:10 01/10/18 01/10/18 01/10/18 23:10 23:10 23:10 WBC 8.73 10^3/uL 10^3/uL (3.80-9.50) RBC 4.41 10^6/uL 10^6/uL (4.18-5.33) Hgb 14.4 g/dL g/dL (12.6-16.3) Hct 43.7 % % (38.0-47.0) MCV 99.1 fL fL (81.5-99.8) MCH 32.7 pg pg (27.9-34.1) MCHC 33.0 g/dL g/dL (32.4-36.7) RDW 14.1 % % (11.5-15.2) Plt Count 288 10^3/uL 10^3/uL (150-400) MPV 10.1 fL fL (8.7-11.7) Neut % (Auto) 46.0 % % (39.3-74.2) Lymph % (Auto) 35.3 % % (15.0-45.0) [place] % (Auto) 12.4 % % (4.5-13.0) Eos % (Auto) 4.8 % % (0.6-7.6) Baso % (Auto) 1.0 % % (0.3-1.7) Nucleat RBC Rel Count 0.0 % % (0.0-0.2) Absolute Neuts (auto) 4.02 10^3/uL 10^3/uL (1.70-6.50) Absolute Lymphs (auto) 3.08 10^3/uL H 10^3/uL (1.00-3.00) Absolute Monos (auto) 1.08 10^3/uL H 10^3/uL (0.30-0.80) Absolute Eos (auto) 0.42 10^3/uL H 10^3/uL (0.03-0.40) Absolute Basos (auto) 0.09 10^3/uL 10^3/uL (0.02-0.10) Absolute Nucleated RBC 0.00 10^3/uL 10^3/uL (0-0.01) Immature Gran % 0.5 % % (0.0-1.1) Immature Gran # 0.04 10^3/uL 10^3/uL (0.00-0.10) PT 12.8 SEC SEC (12.0-15.0) INR 0.94 (0.83-1.16) APTT 27.5 SEC SEC (23.0-38.0) D-Dimer 0.90 ug/mLFEU H ug/mLFEU (0.00-0.50) Sodium 137 mEq/L mEq/L (135-145) Potassium 4.6 mEq/L mEq/L (3.5-5.2) Chloride 104 mEq/L mEq/L (97-110) Carbon Dioxide 22 mEq/l mEq/l (22-31) Anion Gap 11 mEq/L mEq/L (8-16) BUN 19 mg/dL mg/dL (7-23) Creatinine 1.2 mg/dL H mg/dL (0.6-1.0) Estimated GFR 42 Glucose 92 mg/dL mg/dL (70-100) Calcium 9.5 mg/dL mg/dL (8.5-10.4) Magnesium 1.9 mg/dL mg/dL (1.6-2.3) Total Bilirubin 0.4 mg/dL mg/dL (0.1-1.4) Conjugated Bilirubin 0.2 mg/dL mg/dL (0.0-0.5) Unconjugated Bilirubin 0.2 mg/dL mg/dL (0.0-1.1) AST 33 IU/L IU/L (14-46) ALT 30 IU/L IU/L (9-52) Alkaline Phosphatase 119 IU/L IU/L (38-126) Creatine Kinase 107 IU/L IU/L (0-156) CK-MB (CK-2) Fraction 2.47 ng/mL ng/mL (0.00-3.19) Troponin I 0.024 ng/mL ng/mL (0.000-0.034) NT-Pro-B Natriuret Pep 498 pg/mL H pg/mL (0-450) Total Protein 7.2 g/dL g/dL (6.3-8.2) Albumin 4.0 g/dL g/dL (3.5-5.0) Medications Given: Discontinued Medications Albuterol/Ipratropium (Duoneb) 3 ml IH EDNOW ONE Stop: 01/10/18 23:15 Last Admin: 01/10/18 23:33 Dose: 3 ml Sodium Chloride (Ns) 500 mls @ 1,000 mls/hr IV EDNOW ONE PRN Reason: Protocol Stop: 01/10/18 23:39 Last Admin: 01/10/18 23:33 Dose: 500 mls Departure - Departure Disposition: Home, Routine, Self-Care Clinical Impression: Shortness of breath Condition: Good Instructions: Shortness of Breath (ED), Dyspnea (ED) Additional Instructions: 1. Return to the emergency room if you have any worsening symptoms includes worsening shortness of breath, chest pain we are not feeling well. Referrals: Patient,NotPresent [Unknown] - As per Instructions
[2018-01-10] MEDS ORDERED: IPRATROPIUM/ALBUTEROL 3 ML DEYVIAL IH ONE (23:14)
--- NOTE | 2018-01-10 23:20 | CPEKG ---
Heart Rate: 62 RR Interval: 968 P-R Interval: 240 QRSD Interval: 116 QT Interval: 460 QTC Interval: 468 P [place]: -39 QRS [place]: -37 T Wave [place]: 132 EKG Severity - ABNORMAL ECG - EKG Impression: SINUS RHYTHM EKG Impression: VENTRICULAR PREMATURE COMPLEX EKG Impression: FIRST DEGREE AV BLOCK EKG Impression: LVH WITH IVCD, LAD AND SECONDARY REPOL ABNRM Electronically Signed By: Osmany Yusuf 17-Jan-2018 10:38:51
[2018-01-10 23:24] LABS: PLATELET COUNT 288 10^3/uL (150-400)
[2018-01-10 23:25] VITALS: TEMP 97.7
[2018-01-10 23:33] LABS: INR 0.94 (0.83-1.16); PROTIME(PATIENT) 12.8 SEC (12.0-15.0)
[2018-01-10 23:35] LABS: CREATINE KINASE 107 IU/L (0-156)
[2018-01-11 00:03] VITALS: RESP 18
[2018-01-11] MEDS ORDERED: IOPAMIDOL (ISOVUE 370) 100 ML BTL IV ONE (00:12)
[2018-01-11 01:29] VITALS: BP 185/87; PULSE 70; O2SAT 94
== END 2018-01-11 01:28 | disposition home or self-care (01) ==
LOC: EDUNIT#
DX: R06.02 Shortness of breath (principal); I10 Essential (primary) hypertension; I50.9 Heart failure, unspecified; E86.9 Volume depletion, unspecified; Z79.82 Long term (current) use of aspirin
CPT/HCPCS: 71045; 71275; 93005; 96360; 99285; Q9967

== ENCOUNTER 2018-04-27 13:58 | Emergency (ER) | payer OTHER, MEDICARE ==
--- NOTE | 2018-04-27 14:07 | EDPHY ---
H & P Time Seen by Provider: 04/27/18 14:01 HPI/ROS: CHIEF COMPLAINT: Chest pressure HISTORY OF PRESENT ILLNESS: The patient is an 87-year-old female who arrives by EMS from [facility] . Initially to them she was complaining of chest pressure. She denied this to paramedics and me. She does report to me some shortness of breath but is saturating 95% on room air. She has a history of advanced dementia, Alzheimer's as well as hypertension. She denies recent fevers, cough, sore throat, runny nose etc. No nausea vomiting or GI symptoms. No history of COPD or asthma. REVIEW OF SYSTEMS: Constitutional: denies: chills, fever, recent illness, recent injury EENTM: denies: blurred vision, double vision, nose congestion Respiratory: See HPI Cardiac: See HPI Gastrointestinal/Abdominal: denies: abdominal pain, diarrhea, nausea, vomiting, blood streaked stools Genitourinary: denies: dysuria, frequency, hematuria, pain Musculoskeletal: denies: joint pain, muscle pain Skin: denies: lesions, rash, jaundice, bruising Neurological: denies: headache, numbness, paresthesia, tingling, dizziness, weakness Hematologic/Lymphatic: denies: blood clots, easy bleeding, easy bruising Immunologic/allergic: denies: HIV/AIDS, transplant EXAM: GENERAL: Well-appearing, somewhat confused and in no acute distress. HEAD: Atraumatic, normocephalic. EYES: Pupils equal round and reactive to light, extraocular movements intact, sclera anicteric, conjunctiva are normal. ENT: TMs normal, nares patent, oropharynx clear without exudates. Moist mucous membranes. NECK: Normal range of motion, supple without lymphadenopathy or JVD. LUNGS: Breath sounds clear to auscultation bilaterally and equal. No wheezes rales or rhonchi. HEART: Regular rate and rhythm without murmurs, rubs or gallops. ABDOMEN: Soft, nontender, normoactive bowel sounds. No guarding, no rebound. No masses appreciated. BACK: No CVA tenderness, no spinal tenderness, step-offs or deformities EXTREMITIES: Normal range of motion, no pitting or edema. No clubbing or cyanosis. NEUROLOGICAL: Cranial nerves II through XII grossly intact. Normal speech, normal gait. 5/5 strength, normal movement in all extremities, normal sensation PSYCH: Normal mood, normal affect. [id number] SKIN: Warm, dry, normal turgor, no visible rashes or lesions. Source: Patient, EMS Exam Limitations: No limitations - Medical/Surgical History Hx Asthma: No Hx Chronic Respiratory Disease: No Hx Diabetes: No Hx Cardiac Disease: No Hx Renal Disease: No Hx Cirrhosis: No Hx Alcoholism: No Hx HIV/AIDS: No Hx Splenectomy or Spleen Trauma: No Other PMH: memory issues, alzheimers. high createnine, osteoporosis, Tia,. HTN - Family History Significant Family History: No pertinent family hx - Social History Smoking Status: Never smoked Alcohol Use: None Constitutional: Initial Vital Signs Temperature (C) 36.7 C 04/27/18 13:58 Heart Rate 68 04/27/18 13:58 Respiratory Rate 20 04/27/18 13:58 Blood Pressure 183/71 H 04/27/18 13:58 O2 Sat (%) 92 04/27/18 13:58 O2 Delivery Mode Room Air Allergies/Adverse Reactions: No Known Allergies Allergy (Verified 01/10/18 23:21) Home Medications: Medication Instructions Recorded Aspirin [Aspirin 81mg (*)] 81 mg PO DAILY tab.chew 12/30/16 Donepezil HCl [Aricept 5 MG (*)] 10 mg PO DAILY tab 12/30/16 Escitalopram Oxalate [Lexapro 10 10 mg PO DAILY tab 12/30/16 MG] amLODIPine BESYLATE [Norvasc 2.5 2.5 mg PO DAILY #30 tab 12/30/16 mg (*)] Medical Decision Making - Diagnostics EKG Interpretation: An EKG obtained and was read and documented in trace view. Please see trace view for full reading and report. Sinus rhythm with multiple PVCs, first- degree block, similar to previous. Imaging Results: Imaging Impressions Chest X-Ray 04/27/18 14:06 Impression: 1. No new abnormality seen within the chest. 2. Mild scoliosis. Imaging: Discussed imaging studies w/ director global market research Radiologist ED Course/Re-evaluation: 2:15 p.m. The patient's son has arrived. He reports that to him she initially complained of feeling generally weak and lightheaded when they were going to get up and go for a walk and that is why he alerted [facility] staff. She never complained of chest pain to him. She had a similar visit in December of this year where she was complaining of shortness of breath and had a negative troponin and negative CT angiogram. She tells me that she has a cold. When asked why she thinks she has a called she states because she has trouble breathing. She denies sore throat, runny nose, cough or fever. She states that usually when she has shortness of breath like this she takes a cough drop and that makes it better. 2:50 p.m. the patient is not having many PVCs on the rhythm strip. 3:20 p.m. the patient is currently asymptomatic. We discussed her borderline D- dimer at length. Together we in the sun the decided not to perform a CT angiogram. Her D-dimer was higher a couple of months ago and the CT scan was negative. We will give her road test to further evaluate. Otherwise she would very much like to go home. The son feels comfortable with this plan. 3:35 p.m. patient did very well and a road test. She and her son feel comfortable in her eager to go home. We discussed indications for returning. Differential Diagnosis: Partial list of the Differential diagnosis considered include but were not limited to; anxiety, hypertension, arrhythmia, electrolyte abnormality, acute coronary disease, presyncope, dehydration and although unlikely based on the history and physical exam, I also considered infection, TIA, CVA. I discussed these differential diagnoses and the plan with the patient as well as the usual and expected course. The patient understands that the diagnosis is provisional and that in medicine we are not always correct and that further workup is often warranted. Usual and customary warnings were given. All of the patient's questions were answered. The patient was instructed to return to the emergency department should the symptoms at all worsen or return, otherwise to followup with the physician as we discussed. - Data Points Laboratory Results: Laboratory Results 04/27/18 13:58 04/27/18 13:58 04/27/18 04/27/18 04/27/18 14:07 13:58 13:58 WBC RBC Hgb Hct MCV MCH MCHC RDW Plt Count MPV Neut % (Auto) Lymph % (Auto) [place] % (Auto) Eos % (Auto) Baso % (Auto) Nucleat RBC Rel Count Absolute Neuts (auto) Absolute Lymphs (auto) Absolute Monos (auto) Absolute Eos (auto) Absolute Basos (auto) Absolute Nucleated RBC Immature Gran % Immature Gran # PT 13.2 SEC SEC (12.0-15.0) INR 0.98 (0.83-1.16) APTT 27.1 SEC SEC (23.0-38.0) D-Dimer 0.88 ug/mLFEU H ug/mLFEU (0.00-0.50) Sodium 138 mEq/L mEq/L (135-145) Potassium 4.5 mEq/L mEq/L (3.3-5.0) Chloride 106 mEq/L mEq/L (97-110) Carbon Dioxide 21 mEq/l L mEq/l (22-31) Anion Gap 11 mEq/L mEq/L (8-16) BUN 19 mg/dL mg/dL (7-23) Creatinine 1.4 mg/dL H mg/dL (0.6-1.0) Estimated GFR 35 Glucose 129 mg/dL H mg/dL (70-100) Calcium 9.9 mg/dL mg/dL (8.5-10.4) Total Bilirubin 0.6 mg/dL mg/dL (0.1-1.4) Conjugated Bilirubin 0.4 mg/dL mg/dL (0.0-0.5) Unconjugated Bilirubin 0.2 mg/dL mg/dL (0.0-1.1) AST 42 IU/L IU/L (14-46) ALT 30 IU/L IU/L (9-52) Alkaline Phosphatase 135 IU/L H IU/L (38-126) POC Troponin I 0.04 ng/mL ng/mL (0.00-0.08) Total Protein 7.3 g/dL g/dL (6.3-8.2) Albumin 3.8 g/dL g/dL (3.5-5.0) Lipase 206 IU/L IU/L (23-300) 04/27/18 13:58 WBC 9.98 10^3/uL H 10^3/uL (3.80-9.50) RBC 4.66 10^6/uL 10^6/uL (4.18-5.33) Hgb 15.0 g/dL g/dL (12.6-16.3) Hct 45.9 % % (38.0-47.0) MCV 98.5 fL fL (81.5-99.8) MCH 32.2 pg pg (27.9-34.1) MCHC 32.7 g/dL g/dL (32.4-36.7) RDW 13.8 % % (11.5-15.2) Plt Count 301 10^3/uL 10^3/uL (150-400) MPV 10.3 fL fL (8.7-11.7) Neut % (Auto) 51.1 % % (39.3-74.2) Lymph % (Auto) 33.8 % % (15.0-45.0) [place] % (Auto) 9.5 % % (4.5-13.0) Eos % (Auto) 4.3 % % (0.6-7.6) Baso % (Auto) 1.0 % % (0.3-1.7) Nucleat RBC Rel Count 0.0 % % (0.0-0.2) Absolute Neuts (auto) 5.10 10^3/uL 10^3/uL (1.70-6.50) Absolute Lymphs (auto) 3.37 10^3/uL H 10^3/uL (1.00-3.00) Absolute Monos (auto) 0.95 10^3/uL H 10^3/uL (0.30-0.80) Absolute Eos (auto) 0.43 10^3/uL H 10^3/uL (0.03-0.40) Absolute Basos (auto) 0.10 10^3/uL 10^3/uL (0.02-0.10) Absolute Nucleated RBC 0.00 10^3/uL 10^3/uL (0-0.01) Immature Gran % 0.3 % % (0.0-1.1) Immature Gran # 0.03 10^3/uL 10^3/uL (0.00-0.10) PT INR APTT D-Dimer Sodium Potassium Chloride Carbon Dioxide Anion Gap BUN Creatinine Estimated GFR Glucose Calcium Total Bilirubin Conjugated Bilirubin Unconjugated Bilirubin AST ALT Alkaline Phosphatase POC Troponin I Total Protein Albumin Lipase Point of Care Test Results: Chemistry 04/27/18 14:07 POC Troponin I 0.04 ng/mL ng/mL (0.00-0.08) Departure - Departure Disposition: Home, Routine, Self-Care Clinical Impression: Pre-syncope Condition: Fair Instructions: Near Syncope (ED) Referrals: Patient,NotPresent [Unknown] - As per Instructions
--- NOTE | 2018-04-27 14:11 | CPEKG ---
Heart Rate: 67 RR Interval: 896 P-R Interval: 240 QRSD Interval: 114 QT Interval: 452 QTC Interval: 478 P Lamont: 19 QRS Lamont: -40 T Wave Lamont: 113 EKG Severity - ABNORMAL ECG - EKG Impression: SINUS RHYTHM EKG Impression: MULTIPLE VENTRICULAR PREMATURE COMPLEXES EKG Impression: FIRST DEGREE AV BLOCK Electronically Signed By: Jackson Rebolledo 27-Apr-2018 14:48:59
[2018-04-27 14:17] LABS: PLATELET COUNT 301 10^3/uL (150-400)
[2018-04-27 14:29] LABS: INR 0.98 (0.83-1.16); PROTIME(PATIENT) 13.2 SEC (12.0-15.0)
[2018-04-27 15:44] VITALS: BP 163/78
== END 2018-04-27 15:51 | disposition home or self-care (01) ==
LOC: EDUNIT#
DX: R55 Syncope and collapse (principal); I10 Essential (primary) hypertension; G30.9 Alzheimer's disease, unspecified; Z79.82 Long term (current) use of aspirin
CPT/HCPCS: 84484-PO

== ENCOUNTER 2019-04-09 04:05 | Emergency (ER) | payer OTHER, MEDICARE | END 2019-04-09 05:30 | disposition home or self-care (01) ==